=== PATIENT | male | born 1985 | race Caucasian/White ===

== ENCOUNTER 2018-06-23 11:57 | Emergency (ER) | payer SELFPAY ==
[~2018-06-23] VITALS: Ht 190.5 cm; Wt 77.3 kg
[2018-06-23 11:58] VITALS: BP 116/77
[2018-06-23] MEDS ORDERED: DIPH,PERTUSS(ACELL),TET VAC/PF 0.5 ML IM-VACC ONE (12:30)
== END 2018-06-23 13:18 | disposition home or self-care (01) ==
LOC: ED 13:00
DX: S61.411A Laceration without foreign body of right hand, initial encounter (principal); X58.XXXA Exposure to other specified factors, initial encounter; Y93.89 Activity, other specified; Y99.8 Other external cause status; Y92.009 Unspecified place in unspecified non-institutional (private) residence as the place of occurrence of the external cause
CPT/HCPCS: 99284